=== PATIENT | male | born 1995 | race Caucasian/White ===

== ENCOUNTER 2023-02-14 23:49 | Emergency (ER) | payer SELFPAY ==
[~2023-02-14] VITALS: Ht 170.2 cm; Wt 68.0 kg
[2023-02-15] MEDS ORDERED: IBUPROFEN 600MG TABLET PO ONE
[2023-02-15 01:04] VITALS: BP 128/65
== END 2023-02-15 01:06 ==
LOC: ER 23:49
DX: M79.632 Pain in left forearm (principal); M79.10 Myalgia, unspecified site
CPT/HCPCS: 73090; 99283